=== PATIENT | female | born 1960 | race African-American/Black ===

== ENCOUNTER 2020-09-23 11:38 | Emergency (ER) | payer BC ==
[~2020-09-23] VITALS: Ht 157.5 cm; Wt 65.8 kg
[~2020-09-23 11:38] MED LIST: ADVIL100 M2; ALBUTEROL INHAL17 GM IH; AMOXICILLIN 50500 MG PO; AZITHROMYCIN 2250 MG PO; FLONASE; GUAIFEN-CODEIN120 ML PO; HYDROCODONE-APA15 ML PO; LEVAQUIN 500 M500 M3 PO; LISINOPRIL10 MG PO; MUCINEX600 MG PO; NOHOMEMEDICATIONS; PREDNISONE50 MG PO; PRILOSEC 20 MG20 MG PO; PRILOSEC40 MG PO; VICODIN 5-5001 EACH PO
[2020-09-23 12:33] LABS: ABSOLUTE NEUTROPHILS 8.3 thou/uL (1.4-8.2); BASOPHILS 0.9 % (0.0-2.0); EOSINOPHILS 0.8 % (0.0-3.0); HEMATOCRIT 43.3 % (37.0-47.0); HEMOGLOBIN 14.8 gm/dL (12.0-15.0); LYMPHOCYTES 15.7 % (24.0-44.0); MCH 29.5 pg (26.0-34.0); MCHC 34.1 g/dL (28.0-37.0); MCV 86.3 fL (80.0-100.0); MONOCYTES 3.6 % (1.0-8.0); PLATELET COUNT 294 thou/uL (150-400); RBC 5.01 mil/uL (4.20-5.00); RDW 14.3 % (10.5-14.5); WBC 10.4 thou/uL (4.0-11.0)
[2020-09-23 12:41] LABS: ANION GAP 8 mmol/L (7-16); BUN 8 mg/dL (7-18); CALCIUM 9.9 mg/dL (8.5-10.1); CHLORIDE 103 mmol/L (98-107); CO2 29 mmol/L (21-32); CREATININE 0.9 mg/dL (0.6-1.0); GLUCOSE 130 mg/dL (74-106); POTASSIUM 3.9 mmol/L (3.5-5.1); SODIUM 140 mmol/L (136-145)
[2020-09-23 12:47] LABS: TROPONIN-I <0.06 ng/mL (<0.06)
[2020-09-23 13:08] LABS: URINE BILIRUBIN NEGATIVE (Negative); URINE BLOOD NEGATIVE (Negative); URINE CLARITY CLEAR; URINE COLOR YELLOW; URINE GLUCOSE-RANDOM* NEGATIVE (Negative); URINE KETONES NEGATIVE (Negative); URINE LEUKOCYTES-REFLEX NEGATIVE (Negative); URINE NITRITE-REFLEX NEGATIVE (Negative); URINE PROTEIN (DIPSTICK) NEGATIVE (Negative); URINE SPECIFIC GRAVITY <= 1.005 (1.005-1.035); URINE UROBILINOGEN 0.2 E.U./dl (0.2-1.0)
[2020-09-23 14:15] VITALS: BP 126/66
--- NOTE | 2020-09-24 07:38 | EKG ---
[place] [address] [facility] [place] [address] ELECTROCARDIOGRAM REPORT Name: EMA RITCHIE Room #: [facility]#: [id number] Admission: 09/23/20 Attend Phys: Discharge: 09/23/20 Date of : 62 Report #: [id number] [facility] ED Test Date: 2020-09-23 Test Time: 11:48:30 Pat Name: EMA RITCHIE Department: Room: Gender: F Seismograph Observer: DESEAN : 1960 Requested By: Joel Pollard Order Number: [id number] MD: Torrey Day Measurements Intervals [place] Rate: 97 P: 74 MD: 141 QRS: 54 QRSD: 81 T: -24 QT: 310 QTc: 394 Interpretive Statements Sinus rhythm Probable left atrial enlargement Probable left ventricular hypertrophy Borderline T abnormalities, inferior leads Baseline wander in lead(s) V4 Compared to ECG 03/02/2013 03:19:39 T-wave abnormality now present Sinus arrhythmia no longer present Electronically Signed On 09-24-2020 7:38:55 [employer] by Torrey Day [email or web address] <ELECTRONICALLY SIGNED> By: Torrey Day MD, [facility] 09/24/20 [id number] [id number] Torrey Day MD, [facility] /EPI
== END 2020-09-23 14:15 | disposition home or self-care (01) ==
LOC: ER 11:38
PROVIDERS: Nurse Practitioner
DX: H53.8 Other visual disturbances (principal); I10 Essential (primary) hypertension; R53.1 Weakness; E78.5 Hyperlipidemia, unspecified; F17.210 Nicotine dependence, cigarettes, uncomplicated; Z79.899 Other long term (current) drug therapy; Z88.1 Allergy status to other antibiotic agents